=== PATIENT | male | born 1965 | race African-American/Black ===

== ENCOUNTER 2020-07-26 08:59 | Emergency (ER) | payer OTHER ==
[~2020-07-26] VITALS: Ht 175.3 cm; Wt 70.0 kg
[2020-07-26] MEDS ORDERED: ONDANSETRON HCL 4MG/2ML INJ IV STA ×2 (09:23→12:02)
[2020-07-26] MEDS ORDERED: KETOROLAC 30MG/ML VIAL IV STA (09:23)
[2020-07-26] MEDS ORDERED: MORPHINE SULFATE 4 MG/ML CPJ (NOT FOR IM USE) IV STA ×2 (09:23→12:02)
[2020-07-26] MEDS ORDERED: SODIUM CHLORIDE 0.9% 1,000 ML IV ONE (09:30)
[2020-07-26 09:59] LABS: BASOPHILS % 0.3 % (0.0-2.0); EOSINOPHILS % 0.1 % (0.0-5.0); HEMATOCRIT. 39.2 % (42.0-52.0); HEMOGLOBIN. 13.5 g/dL (14.0-18.0); LYMPHOCYTES % 10.1 % (20.0-50.0); MEAN CORPUSCULAR HEMOGLOBIN 34.4 pg (28.0-32.0); MEAN CORPUSCULAR VOLUME 99.6 fL (80.0-94.0); MEAN PLATELET VOLUME 6.8 fl (7.4-10.4); MONOCYTES % 11.4 % (2.0-8.0); NEUTROPHILS % 78.1 % (40.0-76.0); PLATELET 291 x1000/uL (130-400); RED BLOOD CELL COUNT 3.93 mill/uL (4.7-6.1); RED CELL DISTRIBUTION WIDTH 14.6 % (11.6-14.6)
[2020-07-26 10:08] LABS: CHLORIDE 94 mEq/L (98-107)
[2020-07-26] MEDS ORDERED: IOHEXOL-300 100 ML BOTTLE ONE (14:10)
[2020-07-26] MEDS ORDERED: KETOROLAC 15MG/ML VIAL IV PRN (14:15)
[2020-07-26] MEDS ORDERED: ACETAMINOPHEN 325MG TABLET PO PRN (14:15)
[2020-07-26] MEDS ORDERED: HYDROCODONE/ACETAMINOPHEN 10/325MG TABLET PO PRN (14:15)
[2020-07-26] MEDS ORDERED: ONDANSETRON HCL 4MG/2ML INJ IV PRN (14:15)
[2020-07-26] MEDS ORDERED: IBUP-2028 MT (17:16)
[2020-07-26] MEDS ORDERED: HYDR-4001 MT (17:16)
[2020-07-26 17:32] VITALS: BP 144/93
[2020-07-26 18:23] LABS: HEPATITIS B SURFACE ANTIGEN NEGATIVE
[2020-07-26 18:53] LABS: HEPATITIS A AB IGM NEGATIVE (NEGATIVE)
== END 2020-07-26 18:44 | disposition home or self-care (01) ==
LOC: ER 08:59 → EDBEDREQ 13:42 → EDBEDREQTM 13:42 → ER 18:44 → CANBEDREQ 19:54
DX: S22.41XA Multiple fractures of ribs, right side, initial encounter for closed fracture (principal); I10 Essential (primary) hypertension; E11.9 Type 2 diabetes mellitus without complications; E78.00 Pure hypercholesterolemia, unspecified; Z90.89 Acquired absence of other organs; W18.30XA Fall on same level, unspecified, initial encounter; Y93.84 Activity, sleeping; Y92.89 Other specified places as the place of occurrence of the external cause; Y99.8 Other external cause status
CPT/HCPCS: 36415; 70450; 71101; 71260; 74177; 80053; 84484; 85025; 86705; 86709; 86803; 87340; 93005; 96361; 96374; 96375; 96376; 99285; J1885; J2270; J2405; J7030; Q9967; Z7610

== ENCOUNTER 2023-01-13 20:28 | Emergency (ER) | payer MEDICAID, OTHER ==
[~2023-01-13] VITALS: Ht 182.9 cm; Wt 73.0 kg
[~2023-01-13 20:28] MED LIST: HYDR-4001 MT; IBUP-2028 MT
[2023-01-13 20:37] VITALS: O2SAT 96
[2023-01-13 22:06] LABS: HEMATOCRIT. 25.1 % (42.0-52.0); HEMOGLOBIN. 7.9 g/dL (14.0-18.0); MEAN CORPUSCULAR HEMOGLOBIN 24.8 pg (28.0-32.0); MEAN CORPUSCULAR HGB CONC 31.6 g/dL (31.0-37.0); MEAN CORPUSCULAR VOLUME 78.7 fL (80.0-94.0); MEAN PLATELET VOLUME 7.2 fl (7.4-10.4); PLATELET 254 x1000/uL (130-400); RED BLOOD CELL COUNT 3.19 mill/uL (4.7-6.1); RED CELL DISTRIBUTION WIDTH 21.1 % (11.6-14.6); WHITE BLOOD COUNT 20.1 x1000/uL (4.5-11.0)
[2023-01-13 22:13] LABS: DIFFERENTIAL COMMENT 1
[2023-01-13 22:14] LABS: CHLORIDE 85 mEq/L (98-107); INDEX HEMOLYSI 1 (1-3); INDEX ICTERIC 1 (1-4); INDEX LIPEMIC 1 (1-3); POTASSIUM 3.3 mEq/L (3.5-5.1); SODIUM 122 mEq/L (136-145)
[2023-01-13] MEDS ORDERED: VANCOMYCIN 1G PREMIX 200 ML IV ONE (22:30)
[2023-01-13] MEDS ORDERED: PIPERACILLIN/TAZ 3.375G PREMIX 50 ML IV ONE (22:30)
[2023-01-13] MEDS ORDERED: SODIUM CHLORIDE 0.9% 1,000 ML IV ONE (22:30)
[2023-01-13 22:31] LABS: ALANINE AMINOTRANSFERASE 27 IU/L (13-61); ASPARTATE AMINOTRANSFERASE 58 IU/L (15-37); BILIRUBIN TOTAL 1.3 mg/dL (0.1-1.0); CARBON DIOXIDE 21 mEq/L (21-32); CREATININE 0.9 mg/dL (0.6-1.3); ETHANOL BLOOD < 10 mg/dL (<10); GLUCOSE 87 mg/dL (70-105); PROTEIN TOTAL 7.8 g/dL (6.0-8.3); T4 FREE 0.22 ng/dL (0.76-1.46); TROPONIN I HIGH SENSITIVITY 5 ng/L (<78); UREA NITROGEN BLOOD 7 mg/dL (7-21)
[2023-01-13 22:39] LABS: THYROID STIMULATING HORMONE >100.0 uIU/mL uIU/mL (0.36-3.74)
[2023-01-13 22:43] LABS: HYPOCHROMASIA 1+; MICROCYTOSIS 1+; PLATELET ESTIMATE NORMAL
[2023-01-13 23:05] LABS: CLARITY URINE CLEAR (CLEAR); COLOR URINE YELLOW (YELLOW); GLUCOSE URINE NEGATIVE (NEGATIVE); KETONES URINE NEGATIVE (NEGATIVE); LEUKOCYTE ESTERASE URINE NEGATIVE (NEGATIVE); NITRITE URINE NEGATIVE (NEGATIVE); OCCULT BLOOD URINE NEGATIVE (NEGATIVE); PH URINE 5.5 (4.5-8.0); PROTEIN URINE TRACE (NEGATIVE); SPECIFIC GRAVITY URINE 1.011 (1.005-1.030)
[2023-01-13 23:08] LABS: BACTERIA URINE NONE SEEN; RBC URINE NONE SEEN /hpf (0-2); SQUAMOUS EPITHELIAL CELL URINE NONE SEEN /lpf (RARE/1+); WBC URINE NONE SEEN /hpf (0-2); YEAST URINE NONE SEEN
[2023-01-13 23:18] LABS: INR 1.4; PROTHROMBIN TIME 14.4 sec (9.6-11.0)
[2023-01-13 23:18] LABS: *AMPHETAMINES SCREEN URINE NEGATIVE (NEGATIVE); *BARBITURATES SCREEN URINE NEGATIVE (NEGATIVE); *BENZODIAZEPINES SCREEN URINE NEGATIVE (NEGATIVE); *COCAINE SCREEN URINE NEGATIVE (NEGATIVE); CANNABINOID URINE SCREEN NEGATIVE (NEGATIVE); ECSTASY MDMA SCREEN URINE NEGATIVE (NEGATIVE); OPIATES URINE SCREEN NEGATIVE (NEGATIVE); PHENCYCLIDINE URINE SCREEN NEGATIVE (NEGATIVE)
[2023-01-13 23:49] LABS: LACTIC ACID 5.7 mmol/L (0.4-2.0)
[2023-01-14 00:20] VITALS: BP 112/82; PULSE 84; RESP 13; TEMP 97.9
== END 2023-01-14 00:37 | disposition short-term general hospital (02) ==
LOC: ER 20:28
DX: E87.1 Hypo-osmolality and hyponatremia (principal); R47.81 Slurred speech; R42 Dizziness and giddiness; D72.829 Elevated white blood cell count, unspecified; E03.9 Hypothyroidism, unspecified; I10 Essential (primary) hypertension; Z90.89 Acquired absence of other organs
CPT/HCPCS: 80053; 80305; 81003; 80320; 84439; 83605; 84443; 85025; 85610; 87040; 87086; 84484; 36415; 84145; 71045; 93005; 96368; 96365; 99291; 84425; 70450; J2543; J3370; J7030; G0480